=== PATIENT | male | born 2000 | race African-American/Black ===

== ENCOUNTER 2020-12-27 14:56 | Outpatient (REF) | payer MEDICAID, SELFPAY ==
[2020-12-27 18:40] LABS: Alanine Aminotransferase 14 U/L (0-40); Albumin Level 4.4 g/dL (3.5-5.0); Alkaline Phosphatase 103 U/L (39-117); Anion Gap 14 (12-20); Aspartate Amino Transferase 15 U/L (5-37); Bilirubin Total 1.5 mg/dL (0.0-1.0); Blood Urea Nitrogen 13 mg/dL (9-16); Calcium 9.9 mg/dL (8.4-10.2); Carbon Dioxide 24 mmol/L (22-29); Chloride 106 mmol/L (96-108); Cholesterol 123 mg/dL; Estimated Glomerular Filt Rate > 60; Glucose Random 90 mg/dL (60-115); HDL Cholesterol 33 mg/dL; LDL Cholesterol Calculated 74 mg/dl; Potassium 4.3 mmol/L (3.3-5.1); Sodium 140 mmol/L (135-145); Total Protein 7.2 g/dL (6.5-8.0); Triglycerides 82 mg/dL
== END 2020-12-27 14:57 | disposition home or self-care (01) ==
LOC: HO.MANLDS 14:56
PROVIDERS: PCP Internal Medicine; Visit Provider Internal Medicine
DX: Z00.00 Encounter for general adult medical examination without abnormal findings (principal)
CPT/HCPCS: 36415; 80053; 80061

== ENCOUNTER 2021-04-30 15:36 | Outpatient (REF) | payer OTHER, MEDICAID, SELFPAY ==
[2021-04-30 19:27] LABS: Syphilis Screen Nonreactive (Nonreactive)
[2021-05-01 02:56] LABS: CT PCR NOT DETECTED (Not Detect.); NG PCR NOT DETECTED (Not Detect.)
[2021-05-02 08:13] LABS: HIV AB/AG Nonreactive (Nonreactive); HIV Num 1 0.06 S/CO (0.00-0.99); ~HepC Num1 0.09 S/CO (0.00-0.79); ~Hepatitis C Antibody Nonreactive (Nonreactive)
== END 2021-04-30 15:37 | disposition home or self-care (01) ==
LOC: HO.MANLDS 15:36
PROVIDERS: PCP Physician Assistant; Visit Provider Physician Assistant
DX: Z11.3 Encounter for screening for infections with a predominantly sexual mode of transmission (principal)
CPT/HCPCS: 36415; 86780; 86803; 87389; 87491; 87591

== ENCOUNTER 2023-01-29 10:53 | Outpatient (REF) | payer OTHER, MEDICAID, SELFPAY ==
[2023-01-29 13:50] LABS: MANUAL DIFF FLAG NO
[2023-01-29 14:06] LABS: Basophils Percent Auto 0.6 % (0-2); Eosinophils Absolute Auto 0.2 X10*3/uL (0.0-0.4); Eosinophils Percent Auto 2.6 % (0-4); Hematocrit 45.1 % (42.0-52.0); Hemoglobin 14.4 g/dl (14.0-18.0); Imm Gran Abs Auto 0.02 X10*3/uL (0.00-0.03); Imm Gran Pct Auto 0.3 % (0.0-0.4); Lymphocytes Absolute Auto 2.1 X10*3/uL (1.2-4.9); Lymphocytes Percent Auto 29.4 % (20-40); Mean Corpuscular HGB Conc 31.9 g/dl (31.0-36.0); Mean Corpuscular Hemoglobin 25.3 pg (27.0-33.0); Mean Corpuscular Volume 79.1 fL (80.0-98.0); Monocytes Absolute Auto 0.6 X10*3/uL (0.1-1.2); Monocytes Percent Auto 8.6 % (2-11); Neutrophils Absolute Auto 4.2 x10*3/uL (2.0-8.3); Neutrophils Percent Auto 58.5 % (45-73); Platelet Count 282 X10*3/uL (160-400); Red Cell Distribution Width 13.4 % (11.0-16.0); White Blood Count 7.2 X10*3/uL (4.8-10.8)
[2023-01-29 15:05] LABS: Alanine Aminotransferase 18 U/L (0-40); Albumin Level 4.1 g/dL (3.5-5.0); Alkaline Phosphatase 76 U/L (39-117); Anion Gap 9 (12-20); Aspartate Amino Transferase 13 U/L (5-37); Bilirubin Total 0.5 mg/dL (0.0-1.0); Blood Urea Nitrogen 14 mg/dL (9-16); Calcium 9.5 mg/dL (8.4-10.2); Carbon Dioxide 28 mmol/L (22-29); Chloride 107 mmol/L (96-108); Estimated Glomerular Filt Rate > 60; Glucose Random 91 mg/dL (60-115); Potassium 4.1 mmol/L (3.3-5.1); Sodium 140 mmol/L (135-145); Total Protein 6.8 g/dL (6.5-8.0)
[2023-01-29 15:24] LABS: CT PCR NOT DETECTED (Not Detect.); NG PCR NOT DETECTED (Not Detect.)
[2023-01-30 03:30] LABS: Syphilis Screen Nonreactive (Nonreactive)
[2023-01-30 04:10] LABS: HIV AB/AG Nonreactive (Nonreactive); HIV Num 1 0.04 S/CO (0.00-0.99); ~HepC Num1 0.09 S/CO (0.00-0.79); ~Hepatitis C Antibody Nonreactive (Nonreactive)
== END 2023-01-29 10:54 | disposition home or self-care (01) ==
LOC: HO.MANLDS 10:53
PROVIDERS: Visit Provider Physician Assistant
DX: Z00.00 Encounter for general adult medical examination without abnormal findings (principal); Z11.4 Encounter for screening for human immunodeficiency virus [HIV]; Z20.2 Contact with and (suspected) exposure to infections with a predominantly sexual mode of transmission
CPT/HCPCS: 0353U; 80053; 85025; 86780; 86803; 87389

== ENCOUNTER 2025-05-14 14:12 | Outpatient (REF) | payer OTHER, MEDICAID, SELFPAY ==
[2025-05-14 18:28] LABS: MANUAL DIFF FLAG NO
[2025-05-14 18:41] LABS: Hematocrit 46.2 % (42.0-52.0); Hemoglobin 15.0 g/dl (14.0-18.0); Imm Gran Abs Auto 0.03 X10*3/uL (0.00-0.03); Imm Gran Pct Auto 0.4 % (0.0-0.4); Lymphocytes Absolute Auto 1.6 X10*3/uL (1.2-4.9); Mean Corpuscular HGB Conc 32.5 g/dl (31.0-36.0); Mean Corpuscular Hemoglobin 25.6 pg (27.0-33.0); Mean Corpuscular Volume 78.8 fL (80.0-98.0); NRBC Abs Auto 0.000 X10*3/uL (0.0-0.012); NRBC Pct Auto 0.0 /100WBC (0.0-0.2); Platelet Count 262 X10*3/uL (160-400); Red Blood Count 5.86 X10*6/uL (4.60-5.80); White Blood Count 7.3 X10*3/uL (4.8-10.8)
[2025-05-14 19:04] LABS: Alanine Aminotransferase 20 U/L (0-40); Albumin Level 4.5 g/dL (3.5-5.0); Alkaline Phosphatase 87 U/L (39-117); Anion Gap 11 (12-20); Aspartate Amino Transferase 20 U/L (5-37); Blood Urea Nitrogen 14 mg/dL (9-16); Calcium 9.7 mg/dL (8.4-10.2); Carbon Dioxide 27 mmol/L (22-29); Chloride 107 mmol/L (96-108); Cholesterol 128 mg/dL (<200); Estimated Glomerular Filt Rate > 60; HDL Cholesterol 41 mg/dL (>40); Potassium 3.9 mmol/L (3.3-5.1); Sodium 141 mmol/L (135-145); Total Protein 7.2 g/dL (6.5-8.0); Triglycerides 116 mg/dL (<150)
--- OUTSIDE RECORDS SUMMARY | 2025-05-14 19:08 | XMS_ITS | Continuity of Care Document ---
Author Organization [facility] Address [address] [place] [address] Assessment No assessment recorded. Plan of Treatment Reminders Order Date Submit Date Provider Last Modified By Organization Details Last Modified Time Details Appointments ANNUAL EXAM 2024 01:30P M EFE DOMINGUEZ Not available Not available Not available ANNUAL EXAM 2025 01:30P M EFE DOMINGUEZ Not available Not available Not available Lab CMP, serum or plasma 2024 025 [facility] [address], [address], 05/14/2025 13:55:18 CBC w/ auto diff 2024 025 [facility] [address], [address], 05/14/2025 13:55:18 lipid panel, blood 2024 025 [facility] [address], [address], 05/14/2025 13:55:18 vitamin D, 25-hydrox y, total, serum 2024 025 [facility] [address], [address], 05/14/2025 13:55:18 Referral None recorded. Procedures None recorded. Surgeries None recorded. Imaging None recorded. Medication Orders albuterol sulfate HFA 90 mcg/actua tion aerosol inhaler 2024 025 [facility]acy #[id number], [address] [place], [address], 05/14/2025 13:47:02 levalbute rol HFA 45 mcg/actua tion aerosol inhaler 2024 025 [facility]/Pharmacy #[id number], [address] [place], [address], 05/14/2025 13:47:04 Patient TargetsNo targets recorded. Patient InstructionsNo instructions recorded. Reason for Referral None Reported. 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 Medical Equipment None Reported. Allergies No known drug allergies Medications Name Sig Start Date Stop Date Status Note LastModified by Organization Details LastModified Time clindamycin HCl 300 mg capsule 04/14 completed Not Available Not Available Not Available ibuprofen 800 mg tablet 04/14 completed Not Available Not Available Not Available meloxicam 15 mg tablet TAKE 1 TABLET BY MOUTH EVERY DAY FOR 7 DAYS NEEDED 06/28 completed Not Available Not Available Not Available sumatriptan 50 mg tablet TAKE 1 TABLET BY MOUTH NEEDED FOR MIGRAINE MAY REPEAT DOSE AFTER 1 HOUR 06/28 completed Not Available Not Available Not Available tramadol 50 mg tablet TAKE 1 TABLET BY MOUTH TWICE DAILY FOR 5 DAYS NEEDED 06/28 completed Not Available Not Available Not Available ondansetron 8 mg disintegrat ing tablet DISSOLVE 1 TABLET ON THE TONGUE TWICE DAILY FOR 7 DAYS NEEDED 06/28 completed Not Available Not Available Not Available oxycodone-a cetaminophe n 5 mg-325 mg tablet 04/14 completed Not Available Not Available Not Available methylpredn isolone 4 mg tablets in a dose pack 04/14 completed Not Available Not Available Not Available albuterol sulfate HFA 90 mcg/actuati on aerosol inhaler INHALE 2 PUFFS BY MOUTH EVERY 4 HOURS 2024 active Not Available Not Available Not Avai lable levalbutero l HFA 45 mcg/actuati on aerosol inhaler INHALE 2 PUFFS INTO THE LUNGS EVERY 4 HOURS 2024 active Not Available Not Available Not Avai lable chlorhexidi ne gluconate 0.12 % mouthwash 04/14 completed Not Available Not Available Not Available bupropion HCl 150 mg tablet,12 hr sustained-r elease(smok ing deterrent) Take 1 tablet every day by oral route for 30 days. 06/28 completed Not Available Not Available Not Available Vitals Date Recorded Body weight Oxygen saturation Heart rate Systolic And Diastolic Provider Name and Address Organization Details Last Updated DateTime 05/14/2025 28524.43 g 97 % 69 /min 108/72 mm[Hg] JULIO POLANCO [facility] 05/14/2025 13:41:52 Social History Question Answer Notes LastModified by Shhm[employer]ze Details LastModified Time Tobacco Smoking Status Current Every Day Smoker Keiry porter [facility] 01/29/2023 10:34:28 What Was The Date Of Your Most Recent Tobacco Screening? 05/14/2025 [email or web address] Information not available 05/14/2025 Sex: Unknown Functional Status Question Answer Note LastModified by [employer] Details LastModified Time Do you or have you ever used any other forms of tobacco or nicotine? Yes Information not available 01/14/2022 Do you or have you ever used e-cigarettes or vape? Current user of electronic cigarettes Information not available 01/14/2022 Mental Status None recorded. Family History Relationship Description Onset Age of this Age Resolved Age Notes LastModified by Organization Details LastModified Time Father No current problems or disability [email or web address] Not available 05/14 13:45:57 Mother No current problems or disability [email or web address] Not available 05/14 13:45:57 Medical History No medical history recorded. Immunizations Vaccine Type Date Status Note Provider Nam e and Address Organization Details Recorded Time Tdap 04/02/2011 completed Not Available [facility] 03/01/2023 02:08:55 Hep B, adolescent or pediatric 2000 completed Not Available [facility] 3 02:08:55 Hep B, adolescent or pediatric 2000 completed Not Available [facility] 3 02:08:55 Hep B, adolescent or pediatric 2000 completed Not Available [facility] 3 02:08:55 Hep B, adolescent or pediatric 2000 completed Not Available [facility] 3 02:08:55 Past Encounters Encounter ID Performer Location Encounter Start Date Encounter Closed Date Diagnosis/Indication Diagnosis SNOMED-CT Code Diagnosis ICD10 Code Diagnosis IMO Codes Diagnosis Note [id number] Brody Briones DO [facility] [address] [facility],[place] [address] 05/14/2025 13:33:55 05/14/2025 13:53:53 Depression screening 902344613 Z13.31 SCREENING NEGATIVE Asthma 742925838 J45.20 exercise induced, patient does not need any additional medication at this time or interventi ons outside of his albuterol inhalercol d triggers it but otherwise unchanged General ex amination of patient 828784435 Z00.00 920251 stable Health Concerns Section Related Observation LastModified by Organization Detai ls LastModified Time None Recorded Concern Status LastModified by Organization Details LastModified Time None Recorded Payers Encounter Date Sequence Insurance Name Policy Number Policy Chandler Covered Member ID Chandler Member ID Guarantor Name 05/14/2025 2 [place]: [facility] Jermaine Atkinson [id number] Jermaine Atkinson 05/14/2025 1 [facility] [id number] Jermaine Atkinson [id number] Jermaine Atkinson Notes Date Note Type Note Provider Name a nd Address Organization Details Recorded Time 5 text/html Annual WellnessReported by PatientSocial/Behavio ral HistoryFor diet and nutrition, patient reportshealthy diet,discussed vitamin and supplement use,discussed portion control,discussed maintaining calcium balance, anddiscussed diet improvement. For fracture risk, patient reportsno history of fractures,no recent explained fracture,no sudden unexplained fractures, andno previous musculoskeletal injuries. For physical activity, patient reportsexercises on a regular basis,recent increase in physical activity,good physical condition,discussed weightbearing activities, anddiscussed exercise habits. For additional lifestyle factors, patient reportsno tobacco useanddrinks alcohol (mild-moderate)(caffe ine mild to moderate).Mental Status:For depression risk, patient reportsnever feels sad, empty, or tearful,no loss of interest in activities,no significant changes in weight,no sleep disturbances or insomnia,no agitation,no loss of energy,no feelings of worthlessness or guilt,no thoughts of suicide,no history of depression, andno history of mood disorders.Functional AbilityFor hearing, patient reportsno loss of hearing. For vision, patient reportsno vision problems.sees the dentist twiceROS as noted in the HPI asthma: stablethe patient is all set on inhalers EFE DOMINGUEZ [address] [place] [address], [phone], [facility] 05/14/2025 13:53:51
--- OUTSIDE RECORDS SUMMARY | 2025-05-14 19:08 | XMS_ITS | Clinical Summary ---
Author Organization [employer] Address [address] [place] [address] [address] [place] [address] Care Team Providers Care Research Archaeologist Name Role Phone Unavailable Primary Care Provider Unavailabl e Allergies No known active allergies Medications albuterol 108 (90 Base) MCG/ACT inhaler albuterol sulfate HFA 90 mcg/actuation aerosol inhaler INHALE 2 PUFFS BY MOUTH EVERY 4 HOURS Active Active Problems Problem Noted Date Diagnosed Date Dental calculus 09/21/2022 Social History Tobacco Use Types Packs/Day Years Used Date Smoking Tobacco: Never Smokeless Tobacco: Never Sex and Gender Information Value Date Recorded Sex Assigned at Male 04/20/2022 10:39 AM EDT Legal Sex Male 10:39 AM EDT Gender Identity Choose not to disclose 10:39 AM EDT Sexual Orientation Choose not to disclose 2021 10:39 AM EDT Last Filed Vital Signs Vital Sign Reading Time Taken Comments Blood Pressure 124/76 09/21/2022 3:12 PM EDT Pulse 74 09/21/2022 3:12 PM EDT Temperature - - Respiratory Rate - - Oxygen Saturation - - Inhaled Oxygen Concentration - - Weight - - Height - - Body Mass Index - - Plan of Treatment Health Maintenance Due Date Last Done Comments Depression Screening 2000 HIV Screening 2000 SDOH Screening 2000 Disability Screening 2000 Pneumococcal Vaccine: Pediatrics (0 to 5 Years) and At-Risk Patients (6 to 49) Years (1 of 1 - PPSV23, PCV20, or PCV21) 01/01/2006 04/29/2001, 2000, 2000, Additional history exists Alcohol/Substance Use Screening 2012 Family Planning (PISQ) 01/01/2015 Hepatitis C Screening 01/01/2018 Dental Oral Exam 03/24/2023 09/21/2022 Dental Prophylaxis 03/24/2023 09/21/2022 Tobacco Screening 09/22/2023 09/21/2022 Dental X-Ray: Bitewings 09/23/2023 09/21/2022 Dental X-Ray: Full Mouth 08/08/2024 08/07/2021 COVID-19 Vaccine ( season) 2025 08/06/2021, 07/15/2021 Influenza Vaccine (#1) 2025 7, 06/12/2016, 03/15/2015 DTaP/Tdap/Td Vaccines (7 - Td or Tdap) 04/24/2031 04/24/2021, 04/02/2011, 01/27/2003, Additional history exists Zoster Vaccines (1 of 2) 01/01/2050 RSV Patients and Patients Aged 60 years or older (1 - 1-dose 75+ series) 01/01/2075 Hepatitis B Vaccines Completed 2000, 2000, 2000, Additional history exists HIB Vaccines Completed 04/29/2001, 07/23, 2000, Additional history exists IPV Vaccines Completed 11/05/2010, 02/2003, 11/04/2001, Additional history exists HPV Vaccines Completed 09/27/2013, 02/19, 12/29/2012 Meningococcal Vaccine Completed 05/31/2017, 011 Hepatitis A Vaccines Aged Out No long er eligible based on patient's age to complete this topic Meningococcal B Vaccine Aged Out No l onger eligible based on patient's age to complete this topic RSV under 20 months Aged Out No longe r eligible based on patient's age to complete this topic Rotavirus Vaccines Aged Out No longer eligible based on patient's age to complete this topic Procedures Procedure Name Priority Date/Time Associated Diagnosis Comments Full PROPHYLAXIS - ADULT Routine 023 3:00 PM EDT BITEWINGS - 4 RADIOGRAPHIC IMAGES Routine 09/21/2022 3:00 PM EDT PERIODIC ORAL EVALUATION - ESTABLISHED PATIENT Routine 09/21/2022 2:45 PM EDT from Last 3 Months or Most Recently Relevant to Health Maintenance [facility] STAND ADULT
--- OUTSIDE RECORDS SUMMARY | 2025-05-14 19:08 | XMS_ITS | Encounter Summary ---
Author Organization [facility] Address [address] [place], [place] [id number] Phone Care Team Providers Care Manager Welding Name Role Phone Dinorah Perkins MD Primary Care Provider Pcp, Unknown Unavailable Unavailable Unknown, Unknown MD Primary Care Provider Jacinta Malcolm MD Primary Care Provid er Pcp, Unknown Primary Care Provider UnavailBrody Crawford DO Primary Care Provider [phone] Encounter Details Date Type Department Care Team (Latest Contact Info) Description 05/31/2017 Transcribe Orders [facility] Lab Main [address] [place] [address] Dinorah Perkins MD [address] [place] [address] Encounter for routine child health examination without abnormal findings (Primary Dx) Social History Tobacco Use Types Packs/Day Years Used Date Smoking Tobacco: Never Assessed Sex and Gender Information Value Date Recorded Sex Assigned at Male 02/28/2023 5:50 PM EDT Legal Sex Male 8:47 PM EDT Gender Identity Male 02/28/2023 5:50 PM EDT Sexual Orientation Not on file documented as of this encounter Plan of Treatment Not on file documented as of this encounter Results * Chlamydia Trachomatis and Neisseria Gonorrhoeae Nucleic Acid Detection (05/31/2017 5:45 PM EST) CHLAMYDIA TRACHOMATIS Not Detected Not Detected [facility] NEISERIA GONORRHOEAE Not Detected Not Detected [facility] SPECIMEN TYPE URINE [facility] Urine (Urine) 05/31/2017 5:4 5 PM EST 05/31/2017 6:12 PM EST Dinorah Perkins MD LAB GENERAL ORDERABLES Final Result Performing Organization Address City/State/[facility] Co de Phone Number [facility] [address] [place] [address] documented in this encounter Visit Diagnoses Diagnosis Encounter for routine child health examination without abnormal findings- Primary documented in this encounter Additional Health Concerns Infection Onset Date Last Indicated Resolved Time CoV-Risk 10/24/2021 10/27/2021 11/07/2021 1:24 AM EDT CoV-Risk 02/28/2023 02/28/2023 03/11/2023 1:22 AM EDT documented as of this encounter Care Teams Manager Welding Relationship Specialty Start Date End Date Dinorah Perkins MD PCP - General Pediatrics 05/31/17 10/08/20 Pcp, Unknown PCP - Pediatrics 10/08/20 07/02/22 Unknown, Joshua, PCP - General 10/24/21 02/05/22 Jacinta Molina MD [address] [address] [email or web address] PCP - General Family Medicine 02/06/22 Pcp, Unknown PCP - General 07/03/22 09/22/22 Brody Briones DO [address] [address] [email or web address] PCP - General Internal Medicine 09/23/22 documented as of this encounter Additional Source Comments The information contained in this document represents components of the legal health record. It is not the complete legal health record.[facility]
--- OUTSIDE RECORDS SUMMARY | 2025-05-14 19:08 | XMS_ITS | Encounter Summary ---
Author Organization [employer] Address [address] [facility] [address] [place] [address] Care Team Providers Care Gaming Cage Cashier Name Role Phone Unavailable Primary Care Provider Unavailabl e Encounter Details Date Type Department Care Team (Latest Contact Info) Description 09/09/2021 Abstract [facility] CONVERSIONS Dental, Provider, DDS Social History Tobacco Use Types Packs/Day Years Used Date Smoking Tobacco: Never Assessed Sex and Gender Information Value Date Recorded Sex Assigned at Male 04/20/2022 10:39 AM EDT Legal Sex Male 10:39 AM EDT Gender Identity Choose not to disclose 10:39 AM EDT Sexual Orientation Choose not to disclose 2021 10:39 AM EDT documented as of this encounter Plan of Treatment Not on file documented as of this encounter Visit Diagnoses Not on filedocumented in this encounter
--- OUTSIDE RECORDS SUMMARY | 2025-05-14 19:08 | XMS_ITS | Encounter Summary ---
Author Organization [facility] Address [email or web address] [facility] [address] [place] [address] Phone Care Team Providers Care Ctrs Name Role Phone Brody Briones Primary Care Provider [phone] Encounter Details Date Type Department Care Team (Late st Contact Info) Description 05/14/2025 Orders Only [address] [address] Daina Cuevas PA [address] [place] [address] [place] [address] Well adult exam (Primary Dx) Social History Tobacco Use Types Packs/Day Years Used Date Smoking Tobacco: Never Smokeless Tobacco: Never Alcohol Use Standard Drinks/Week Comments Yes 6 (1 standard drink = 0.6 oz pur e alcohol) Education Answer Date Recorded Are you interested in more education? Not on ray e 10/16/2022 Are you concerned about learning? Not on file 10/16/2022 No 10/16/2022 No 10/16/2022 Digital Access Answer Date Recorded No 11/13/2022 No 11/13/2022 Reliable internet access at home? Not on file 11/13/2022 Device with a working camera? Not on file Intimate Partner Violence Answer Date R ecorded Are you denied basic needs s uch as food, clothing, or medical care? No 02/28/2023 In the past 12 months have y ou been in a relationship with a person who hurts, threatens, or tries to control you? No 02/28/2023 Are you denied basic needs s uch as food, clothing, or medical care? No 02/28/2023 In the past 12 months have y ou been in a relationship with a person who hurts, threatens, or tries to control you? No 02/28/2023 Sex and Gender Information Value Date Recorded Sex Assigned at Male 02/28/2023 5:50 PM EDT Legal Sex Male 8:47 PM EDT Gender Identity Male 02/28/2023 5:50 PM EDT Sexual Orientation Not on file documented as of this encounter Plan of Treatment Scheduled Orders Name Type Priority Associated Diagnoses Orde r Schedule Comprehensive Metabolic Panel (CMP) Lab Routine Well adult exam Expected: 05/14/2025, Expires: 05/14/2026 CBC and Differential Lab Routine Well adult exam Expected: 05/14/2025, Expires: 05/14/2026 Lipid Panel Lab Routine Well adult exam Expected: 05/14/2025, Expires: 05/14/2026 25-OH Vitamin D Lab Routine Well adult exam Expected: 05/14/2025, Expires: 05/14/2026 documented as of this encounter Visit Diagnoses Diagnosis Well adult exam- Primary Routine general medical examination at a health care facility documented in this encounter Care Teams Ctrs Relationship Specialty Start Date End Date Brody Briones DO [email or web address] PCP - General Internal Medicine 09/23/22 documented as of this encounter Additional Source Comments The information contained in this document represents components of the legal health record. It is not the complete legal health record.[facility]
--- OUTSIDE RECORDS SUMMARY | 2025-05-14 19:08 | XMS_ITS | Clinical Summary ---
Author Organization [facility] Address [address] [place], [place] [id number] Phone Care Team Providers Care Animal Impersonator Name Role Phone Brody Briones Primary Care Provider [phone] Allergies No known active allergies Medications ondansetron (ZOFRAN-ODT) 8 MG disintegrating tablet DISSOLVE 1 TABLET ON THE TONGUE TWICE DAILY FOR 7 DAYS NEEDED 3 Active SUMAtriptan (IMITREX) 50 MG tablet TAKE 1 TABLET BY MOUTH NEEDED FOR MIGRAINE MAY REPEAT DOSE AFTER 1 HOUR 3 Active traMADoL (ULTRAM) 50 mg tablet TAKE 1 TABLET BY MOUTH TWICE DAILY FOR 5 DAYS NEEDED 3 Active meloxicam (MOBIC) 15 MG tablet TAKE 1 TABLET BY MOUTH EVERY DAY FOR 7 DAYS NEEDED 3 Active Encounters Date Type Department Care Team Description 05/14/2025 Orders Only [facility] [address] [address] Daina Cuevas PA Well adult exam (Primary Dx) from Last 3 Months Social History Tobacco Use Types Packs/Day Years Used Date Smoking Tobacco: Never Smokeless Tobacco: Never Tobacco Cessation:Counseling Given: Not Answered Alcohol Use Standard Drinks/Week Comments Yes 6 [...] PM EDT Sexual Orientation Not on file Last Filed Vital Signs Vital Sign Reading Time Taken Comments Blood Pressure 137/84 02/28/2023 8:07 PM EDT Pulse 62 02/28/2023 8:07 PM EDT Temperature 36.7 C (98.1 F) 02/28/2023 5:47 PM EDT Respiratory Rate 16 02/28/2023 8:07 PM EDT Oxygen Saturation 98% 02/28/2023 8:07 PM EDT Inhaled Oxygen Concentration - - Weight 92.4 kg (203 lb 12.8 oz) 02/28/2023 5:47 PM EDT Height 180.3 cm (5' 11 ) 02/28/2023 5:47 PM EDT Body Mass Index 28.42 02/28/2023 5:47 PM EDT Plan of Treatment Health Maintenance Due Date Last Done Comments DEPRESSION SCREENING 2012 SMOKING Hx and SMOKELESS TOBACCO SCREENING 01/01/2013 HEPATITIS C SCREENING 01/01/2018 HIV ONE-TIME SCREENING (18-65 YEARS) 01/01/2018 INFLUENZA VACCINE (#1) 2025 7, 06/12/2016, 03/15/2015 COVID-19 VACCINE ( season) 2025 08/06/2021, 07/15/2021 Adult Td,Tdap Booster 04/24/2031 04/24/2021, 011 HIB VACCINES Completed 04/29/2001, 07/23, 2000, Additional history exists PNEUMOCOCCAL VACCINES (0-49 years) Completed 04/29/2001, 2000, 2000, Additional history exists HPV VACCINES Completed 09/27/2013, 02/19, 12/29/2012 MENINGOCOCCAL VACCINES (ACWY) Completed 05/31/2017, 04/02/2011 HEPATITIS A VACCINES Aged Out No long er eligible based on patient's age to complete this topic MENINGOCOCCAL VACCINES (B) Aged Out N o longer eligible based on patient's age to complete this topic Medical Devices Not on file Insurance [facility] Member Subscriber Plan / Payer (Ef fective 2022-Present) Name:Jermaine Ambriz Relation to Subscriber:Self Name:Jermaine Ambriz Payer ID:[id number] Group ID:Not on file Type:Medicaid Address: [address] [id number] [address] [place] Member Subscriber Plan / Payer (Ef fective 2022-) Name:Jermaine Ambriz Relation to Subscriber:Self Name:Jermaine Ambriz Payer ID:[id number] Group ID:Not on file Type:Medicaid Address: [address] [place] Care Teams Animal Impersonator Relationship Specialty Start Date End Date Brody Briones DO PCP - General Internal Medicine 09/23/22 Additional Source Comments The information contained in this document represents components of the legal health record. It is not the complete legal health record.[facility]
--- OUTSIDE RECORDS SUMMARY | 2025-05-14 19:09 | XMS_ITS | Data Portability ---
Author Organization [facility] Telehealth Patient Home Address [address] [place] [address] Assessment Encounter Date Assessment Date Assessment LastModified by Organization Details LastModified Time 02/07/2024 02/07/2024 amendment: 06/23/24, patient is cleared for physical activity, sports activity [email or web address] Not available 06/23/2024 15:05:00 Plan of Treatment Reminders Order Date Submit Date Provider Last Modified By Organization Details Last Modified Time Details Appointments ANNUAL EXAM 2024 01:30P M EFE DOMINGUEZ Not available Not available Not available ANNUAL EXAM 2025 01:30P M EFE DOMINGUEZ Not available Not available Not available Lab CMP, serum or plasma 2024 025 [facility] [address], [address], 05/14/2025 13:55:18 CBC w/ auto diff 2024 025 [facility] [address], [address], 05/14/2025 13:55:18 lipid panel, blood 2024 025 [facility] [address], [address], 05/14/2025 13:55:18 vitamin D, 25-hydrox y, total, serum 2024 025 [facility] [place], [address] [place] [address], [place], [address], 05/14/2025 13:55:18 RPR (rapid plasma reagin), serum 2023 024 [facility], [address] [place] [address], [address], 02/07/2024 15:37:29 CT + NG RNA, PCR, unspecifi ed specimen 2023 024 [facility], [address] [place] [address], [place], [address], 02/07/2024 15:37:28 HIV 1 + 2, meaningfu l use set 2023 [facility], [address] [place] [address], [place], [address], 02/07/2024 15:37:29 hepatitis C virus Ab, serum 2023 024 [facility], [address] [place] [address], [place], [address], 02/07/2024 15:37:29 CMP, serum or plasma 2023 024 [facility], [address] [place] [address], [place], [address], 02/07/2024 15:37:29 CBC w/ auto diff 2023 024 [facility], [address] [place] [address], [address], 02/07/2024 15:37:29 lipid panel, blood 2023 024 [facility], [address] [place] [address], [id number], 02/07/2024 15:37:29 HIV 1+2 Ab + HIV1 p24 Ag, quantitat alma immunoass ay, serum 2021 [facility], [address] [place] [address], [address], 01/14/2022 12:15:36 CT + NG DNA, PCR, urine 2021 [facility], [address] [place] [address], [address], 01/14/2022 12:15:36 hepatitis C virus Ab, serum 2021 [facility], [address] [place] [address], [address], 01/14/2022 12:15:36 RPR (rapid plasma reagin), serum 2021 [facility], [address] [place] [address], [address], 01/14/2022 12:15:36 CMP, serum or plasma 2021 [facility], [address] [place] [address], [address], 02/07/2022 08:50:18 CBC w/ auto diff 2021 [facility], [address] [place] [address], [address], 02/06/2022 17:05:02 Referral None recorded. Procedures None recorded. Surgeries None recorded. Imaging None recorded. Medication Orders albuterol sulfate HFA 90 mcg/actua tion aerosol inhaler 2024 025 [facility] #2025, [address] [place], [address], 05/14/2025 13:47:02 levalbute rol HFA 45 mcg/actua tion aerosol inhaler 2024 025 [facility] #2025, [address] [facility], [place], [address], 05/14/2025 13:47:04 Patient TargetsNo targets recorded. Patient Instructions Encounter Date Encounter Id Patient Instructions Last Modified By Organization Details Last Modified Time 01/14/2022 [id number] pulse oximetry* [email or web address] Not available 01/14/2022 11:59:20 Reason for Referral None Reported. Results Created Date Observation Date Name Description Value Unit Range Abnormal Flag Note LastModifiedBy Organization Detail LastModifiedTime 01/15/2001/14/2022 pulse oxime try* Result 97 Not Available [facility] [address] [facility] [address], [place], [address], 01/14/2022 08:25:18 Result Notes None recorded. 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 Medical [...] Available Not Available Vitals Date Recorded Body height Body mass index (BMI) Body weight Heart rate Oxygen saturation Systolic And Diastolic Provider Name and Address Organization Details Last Updated DateTime 4 175.26 cm 29.4 kg/m2 91840.9 6 g 61 /min 99 % 132/78 mm[Hg] Lilo Beltran [facility] 4 10:39:03 Date Recorded Body height Body mass index (BMI) Body weight Heart rate Oxygen saturation Systolic And Diastolic Provider Name and Address Organization Details Last Updated DateTime 2 177.17 cm 28.8 kg/m2 89566.2 4 g 72 /min 97 % 110/70 mm[Hg] EFE DOMINGUEZ [address] [place], [address] [place] [address] Internal Medicine 2 11:49:20 Date Recorded Body height Body mass index (BMI) Body weight Heart rate Oxygen saturation Systolic And Diastolic Provider Name and Address Organization Details Last Updated DateTime 3 175.26 cm 31.2 kg/m2 04281.9 9 g 71 /min 97 % 110/70 mm[Hg] Keiryariana Coemond [facility] 3 10:36:01 Date Recorded Body height Body mass index (BMI) Body weight Heart rate Oxygen saturation Systolic And Diastolic Provider Name and Address Organization Details Last Updated DateTime 4 175.26 cm 31 kg/m2 28790.9 6 g 68 /min 96 % 110/68 mm[Hg] Mica Mittal [facility] 4 15:31:32 Date Recorded Body weight Oxygen saturation Heart rate Systolic And Diastolic Provider Name and Address Organization Details Last Updated DateTime 05/14/2025 28309.43 g 97 % 69 /min 108/72 mm[Hg] JULIO POLANCO [facility] 05/14/2025 13:41:52 Social History Question Answer Notes LastModified by [employer] Details LastModified Time Tobacco Smoking Status Current Every Day [facility] 10:34:28 What Was The Date Of Your Most Recent Tobacco Screening? 05/14/2025 [email or web address] Information not available 05/14/2025 Sex: Unknown Functional Status Question Answer Note LastModified by [employer] Details LastModified Time Do you or have [...] Recorded Time Tdap 04/02/2011 completed Not Available [facility] 03/01/2023 02:08:55 Hep B, adolescent or pediatric 2000 completed Not Available [facility] 3 02:08:55 Hep B, adolescent or pediatric 2000 completed Not Available [facility] 3 02:08:55 Hep B, adolescent or pediatric 2000 completed Not Available [facility] 3 02:08:55 Hep B, adolescent or pediatric 2000 completed Not Available [facility] 3 02:08:55 Past Encounters Encounter ID Performer Location Encounter Start Date Encounter Closed Date Diagnosis/Indication Diagnosis SNOMED-CT Code Diagnosis ICD10 Code Diagnosis IMO Codes Diagnosis Note [id number] Brody Briones [facility] [address] [facility] [address] 04/14/2019 15:02:11 04/14/2019 16:03:20 Adult health examination 003785784 Z00.00 Childhood asthma 6883294 06 J45.909 above is no longer an issue [id number] Brody Briones [facility] [address] [facility], [place] [address] 08/13/2020 14:29:03 08/13/2020 15:02:46 Asthma 895310407 J45.909 exercise induced, patient does not need any additional medication at this time or interventi ons outside of his albuterol inhaler [id number] Brody Briones [facility] [address] [facility], [place] [address] 01/01/2021 13:35:34 01/01/2021 14:55:37 Active or passive immunization 991167441 Z23 advised Adult heal th examination 989512106 Z00.00 BW looked excellentB P is fine today Asthma 698856443 J45.90 9 exercise induced, patient does not need any additional medication at this time or interventi ons outside of his albuterol inhaler [id number] Brody Briones [facility] [address] [facility], [place] [address] 01/14/2022 11:44:32 01/14/2022 14:12:40 Active or passive immunization 214336186 Z23 advised he is due for tdap Adult heal th examination 686993832 Z00.00 BW looked excellentB P is fine today Asthma 746121735 J45.90 9 exercise induced, patient does not need any additional medication at this time or interventi ons outside of his albuterol inhaler [place] [facility] latter disease 27409413 M92.529 will let me know if its worsens Venereal d isease screening 995128865 Z11.3 will fu with STI panel [id number] Brody VeronicaAraseli An[facility] [address] [facility],[place] [address] 01/29/2023 10:31:43 02/01/2023 08:29:18 Active or passive immunization 436517330 Z23 advised he is due for tdap Adult heal th examination 306413149 Z00.00 BW looked excellentB P is fine today [id number] Brody JeremíasAraseli [facility] [address] [facility],[place] [address] 06/28/2023 10:28:59 06/28/2023 11:18:39 Asthma 140443491 J45.20 exercise induced, patient does not need any additional medication at this time or interventi ons outside of his albuterol inhalercol d triggers it but otherwise unchanged Adult heal th examination 150744716 Z00.00 BW looked excellent done very recentlyBP is fine todaypaper work filled out for patient todayno other questions [id number] Brody JeremíasAraseli An[facility] [address] [facility],[place] 7 02/07/2024 15:25:57 02/07/2024 16:02:15 Active or passive immunization 083298065 Z23 advised he is due for tdap Adult heal th examination 730945788 Z00.00 stable Depression screening 171 307312 Z13.31 SCREENING NEGATIVE Venereal d isease screening 901237121 Z11.3 will fu with STI panel [id number] Brody Briones [facility] [address] [facility],[place], [place] 7 05/14/2025 13:33:55 05/14/2025 13:53:53 Depression screening 215970907 Z13.31 SCREENING NEGATIVE Asthma 424544763 J45.20 exercise induced, patient does not need any additional medication at this time or interventi ons outside of his albuterol inhalercol d triggers it but otherwise unchanged General ex amination of patient 701091682 Z00.00 674172 stable Health Concerns Section Related Observation LastModified by Organization Detai ls LastModified Time None Recorded Concern Status LastModified by Organization Details LastModified Time None Recorded Advance Directives Directive None Recorded Payers Insurance Date Sequence Insurance Name Policy Number Policy Chandler Covered Member ID Chandler Member ID Guarantor Name 05/11/2025 2 [place] [id number] Jermaine Atkinson [id number] Jermaine Atkinson 05/07/2021 2 [place] [facility] Jermaine Atkinson [id number] Jermaine Atkinson 05/11/2025 1 [facility] [id number] Jermaine Atkinson [id number] Jermaine Atkinson Notes Date Note Type Note Provider Name a oh Address Organization Details Recorded Time 2 text/html Annual WellnessReported by PatientSocial/Behavio ral HistoryFor [...] exercise habits. For additional lifestyle factors, patient reportsdrinks alcohol (mild-moderate) (weekends only; took a break this summer)(vapes every so often).Mental Status:For depression risk, patient reportsnever feels sad, empty, or tearful,no loss of interest in activities,no significant changes in weight,no sleep disturbances or insomnia,no agitation,no loss of energy,no feelings of worthlessness or guilt,no thoughts of suicide,no history of depression, andno history of mood disorders.Functional AbilityFor hearing, patient reportsno loss of hearing. For vision, patient reportsno vision problems. asthma: stable EFE DOMINGUEZ [address] [place], [address], [facility] 01/14/2022 12:11:41 3 text/html Annual WellnessReported by PatientSocial/Behavio ral HistoryFor [...] exercise habits. For additional lifestyle factors, patient reportsdrinks alcohol (mild-moderate) (rarely)(the patient uses the vape pen every day).Mental Status:For depression risk, patient reportsnever feels sad, empty, or tearful,no loss of interest in activities,no significant changes in weight,no sleep disturbances or insomnia,no agitation,no loss of energy,no feelings of worthlessness or guilt,no thoughts of suicide,no history of depression, andno history of mood disorders(anxiety has increased).Functional AbilityFor hearing, patient reportsno loss of hearing. For vision, patient reportsno vision problems(20/20). EFE DOMINGUEZ [address] [place] [address], [address], [facility] 01/29/2023 10:47:06 4 text/html Annual WellnessReported by PatientSocial/Behavio ral HistoryFor [...] lifestyle factors, patient reportsno tobacco useanddrinks alcohol (mild-moderate).Menta l Status:For depression risk, patient reportsnever feels sad, empty, or tearful,no loss of interest in activities,no significant changes in weight,no sleep disturbances or insomnia,no agitation,no loss of energy,no feelings of worthlessness or guilt,no thoughts of suicide,no history of depression, andno history of mood disorders.Functional AbilityFor hearing, patient reportsno loss of hearing. For vision, patient reportsno vision problems. asthma has been stablecold bothers him otherwise tends to be very stable EFE DOMINGUEZ [address] [place], [address], [facility] 06/28/2023 10:52:30 4 text/html Annual WellnessReported by PatientSocial/Behavio ral HistoryFor [...] lifestyle factors, patient reportsno tobacco useanddrinks alcohol (mild-moderate).Menta l Status:For depression risk, patient reportsnever feels sad, [...] is all set on inhalers EFE DOMINGUEZ [address] [place], [address], [facility] 06/23/2024 15:05:16 5 text/html Annual WellnessReported by PatientSocial/Behavio ral [...] is all set on inhalers EFE DOMINGUEZ [address] [place] [address], [place], [address], [facility] 05/14/2025 13:53:51
--- OUTSIDE RECORDS SUMMARY | 2025-05-14 19:09 | XMS_ITS | Encounter Summary ---
Author Organization [facility] Address [address] [place] [address] Phone Care Team Providers Care Maintenance Mechanic Supervisor Name Role Phone Pcp, Unknown Unavailable Unavailable Unknown, Unknown MD Primary Care Provider Jacinta Malcolm MD Primary Care Provid er Pcp, Unknown Primary Care Provider Brody Butts DO Primary Care Provider [phone] Encounter Details Date Type Department Care Team (Latest Contact Info) Description 10/27/2021 Transcribe Orders Virtual Department [address] [place] [address] Daina Cuevas PA [address] [place] [address] [place] [address] Fever, unspecified fever cause (Primary Dx); Cough; SOB (shortness of breath); Sore throat; Muscle ache; Stuffy and runny nose Social History Tobacco Use Types Packs/Day Years [...] as of this encounter Visit Diagnoses Diagnosis Fever, unspecified fever cause- Primary Cough SOB (shortness of breath) Shortness of breath Sore throat Acute pharyngitis Muscle ache Unspecified myalgia and myositis Stuffy and runny nose Other diseases of nasal cavity and sinuses documented in this encounter Additional Health Concerns Infection Onset Date Last Indicated Resolved Time CoV-Risk 10/24/2021 10/27/2021 11/07/2021 1:24 AM EDT CoV-Risk 02/28/2023 02/28/2023 03/11/2023 1:22 AM EDT documented as of this encounter Care Teams Maintenance Mechanic Supervisor Relationship Specialty Start Date End Date Pcp, Unknown PCP - Pediatrics 10/08/20 07/02/22 Unknown, Unknown, PCP - General 10/24/21 02/05/22 Jacinta Molina MD [address] [place] [phone] [email or web address] PCP - General Family Medicine 02/06/22 Pcp, Unknown PCP - General 07/03/22 09/22/22 Brody Briones DO [address] [place] [id number] PCP - General Internal Medicine 09/23/22 documented as of this encounter Additional Source Comments The information contained in this document represents components of the legal health record. It is not the complete legal health record.[facility]
--- OUTSIDE RECORDS SUMMARY | 2025-05-14 19:09 | XMS_ITS | Encounter Summary ---
Author Organization [facility] Address [address] [place] [address] Phone Care Team Providers Care Adjunct Communications Faculty Member Name Role Phone Pcp, Unknown Unavailable Unavailable Unknown, Unknown MD Primary Care Provider Jacinta Malcolm MD Primary Care Provid er Pcp, Unknown Primary Care Provider Brody Butts DO Primary Care Provider [phone] Encounter Details Date Type Department Care Team (Latest Contact Info) Description 10/24/2021 Transcribe Orders Virtual Department [address] [place] [address] Daina Cuevas PA [address] [place] [address] [place] [address] Cough (Primary Dx); Fever, unspecified fever cause; Sore throat; Muscle ache; Runny nose; SOB (shortness of breath) Social History Tobacco Use Types Packs/Day Years [...] as of this encounter Visit Diagnoses Diagnosis Cough- Primary Fever, unspecified fever cause Sore throat Acute pharyngitis Muscle ache Unspecified myalgia and myositis Runny nose Other diseases of nasal cavity and sinuses SOB (shortness of breath) Shortness of breath documented in this encounter Additional Health Concerns Infection Onset Date Last Indicated Resolved Time CoV-Risk 10/24/2021 10/27/2021 11/07/2021 1:24 AM EDT CoV-Risk 02/28/2023 02/28/2023 03/11/2023 1:22 AM EDT documented as of this encounter Care Teams Adjunct Communications Faculty Member Relationship Specialty Start Date End Date Pcp, Unknown PCP - Pediatrics 10/08/20 07/02/22 Unknown, Joshua, PCP - General 10/24/21 02/05/22 Jacinat Molina MD [address] [id number] [email or web address] PCP - General Family Medicine 02/06/22 Pcp, Unknown PCP - General 07/03/22 09/22/22 Brody Briones DO [address] [place] [id number] PCP - General Internal Medicine 09/23/22 documented as of this encounter Additional Source Comments The information contained in this document represents components of the legal health record. It is not the complete legal health record.[facility]
[2025-05-15 04:42] LABS: HIV Num 1 0.07 S/CO (0.00-0.99)
== END 2025-05-14 14:13 | disposition home or self-care (01) ==
LOC: HO.MANLDS 14:12
PROVIDERS: Visit Provider Physician Assistant
DX: Z00.00 Encounter for general adult medical examination without abnormal findings (principal); Z13.6 Encounter for screening for cardiovascular disorders; Z13.21 Encounter for screening for nutritional disorder
CPT/HCPCS: 36415; 80053; 80061; 82306; 85025; 87389